=== PATIENT | male | born 1990 | race Caucasian/White ===

== ENCOUNTER 2019-02-24 20:01 | Emergency (ER) | payer SELFPAY ==
[2019-02-24 20:33] LABS: PLATELET COUNT 161 10^3/uL (150-400)
--- NOTE | 2019-02-25 00:19 | EDPHY ---
H & P Stated Complaint: SI - Personal History Current Tetanus/Diphtheria Vaccine: Yes - Medical/Surgical History Other PMH: ANXIETY, DEPRESSION, chronic pain - Social History Smoking Status: Heavy smoker Time Seen by Provider: 02/24/19 20:03 HPI/ROS: Chief complaint: Suicidal ideation, on mental health hold History of present illness: This is a 28-year-old male brought to the emergency department by EMS, accompanied by the police who have placed him on a mental health hold. Patient apparently was in an argument with his girlfriend. He texted her and called her making suicidal statements. In addition, there is concern that patient had made statements that he was going to take their child away. Girlfriend contacted the police. On my evaluation patient does state he made suicidal statements. He has a history of suicidal ideation. However he states he has no intent. Denies any homicidal ideation. He denies any illness or injury. Review of systems: A 10 point review of systems was obtained and other than described above was negative. (Emile Peters) - Physical Exam Exam: General Appearance: Alert, nontoxic. Eyes: Pupils equal and round no pallor or injection. ENT, Mouth: Mucous membranes moist. Respiratory: There are no retractions, lungs are clear to auscultation. Cardiovascular: Regular rate and rhythm. Gastrointestinal: Abdomen is soft and non tender, no masses, bowel sounds normal. Neurological: Alert. Strength and sensation intact. Skin: Warm and dry, no rashes. Musculoskeletal: Neck is supple non tender. Extremities are symmetrical, full range of motion. Psychiatric: Patient is somewhat belligerent and confrontational. (Emile Peters) Constitutional: Initial Vital Signs Temperature (C) 36.7 C 02/24/19 20:07 Heart Rate 104 H 02/24/19 20:07 Respiratory Rate 16 02/24/19 20:07 Blood Pressure 135/97 H 02/24/19 20:07 O2 Sat (%) 92 02/24/19 20:07 O2 Delivery Mode Room Air Allergies/Adverse Reactions: No Known Allergies Allergy (Unverified 02/24/19 20:24) Home Medications: Medication Instructions Recorded Ibuprofen 02/24/19 Medical Decision Making ED Course/Re-evaluation: Patient seen under the supervision of my secondary supervising physician Dr. Pillo Fitch. Patient is brought to the emergency department on a mental health hold for suicidal ideation. He is nontoxic. Vital signs are stable. He is medically evaluated, he is significantly intoxicated otherwise his evaluation is unremarkable. He will need to sober up before he can undergo psychiatric evaluation. Care of patient will be turned over to my attending physician Dr. Sienna Cervantes at end of shift. (Emile Peters) 5:40 a.m.- Patient stable throughout my shift. We are awaiting sobriety so that he can undergo mental health evaluation for suicidal statements earlier. Case will be signed out at 7:[address] oncoming provider Dr. Kothari. (Sienna Cervantes) Differential Diagnosis: Included but not limited to alcohol intoxication, polysubstance abuse, depression, bipolar, schizophrenia (Emile Peters) Other Provider: I assumed care of the patient at 0700. Update at 11:00 a.m.: The patient has been accepted for inpatient psychiatric hospitalization at [facility] by Dr. Chan. I have filled out the EMTALA transfer form. (Lincoln Kothari) - Data Points Laboratory Results: Laboratory Results 02/24/19 20:17 02/24/19 20:17 Medications Given: Discontinued Medications Ibuprofen (Motrin) 600 mg PO EDNOW ONE Stop: 02/25/19 06:36 Last Admin: 02/25/19 06:36 Dose: 600 mg Departure - Departure Disposition: [facility] IP Clinical Impression: Suicidal ideation Instructions: Suicide Prevention (ED) Referrals: NONE *PRIMARY CARE P,. [Primary Care Provider] - As per Instructions
[2019-02-25] MEDS ORDERED: IBUPROFEN 600 MG TAB PO ONE ×2 (06:31→06:35)
[2019-02-25] MEDS ORDERED: NICOTINE POLACRILEX 2 MG GUM B ONE (07:26)
[2019-02-25 07:39] VITALS: BP 123/71
[2019-02-25] MEDS ORDERED: NICOTINE POLACRILEX 2 MG GUM B PRN (08:22)
== END 2019-02-25 11:54 ==
DX: R45.851 Suicidal ideations (principal); F41.8 Other specified anxiety disorders
CPT/HCPCS: 80305; G0480

== ENCOUNTER 2019-02-25 11:55 | Inpatient (IN) | payer SELFPAY ==
[2019-02-25] MEDS ORDERED: ACETAMINOPHEN 325 MG TAB PO PRN (12:17)
[2019-02-25] MEDS ORDERED: MAGNESIUM HYDROXIDE 30 ML UDCUP PO PRN (12:17)
[2019-02-25] MEDS ORDERED: MAG HYDROX/AL HYDROX/SIMETH 30 ML UDCUP PO PRN (12:17)
[2019-02-25] MEDS ORDERED: OLANZapine DISINTEGR 10 MG TAB PO PRN (12:17)
[2019-02-25] MEDS ORDERED: THIAMINE HCL 100 MG TAB PO ONE ×2 (12:22→15:00)
[2019-02-25] MEDS ORDERED: PROMETHAZINE HCL 25 MG SUPPR PR PRN (12:22)
[2019-02-25] MEDS ORDERED: chlordiazePOXIDE 25 MG CAP PO PRN (12:22)
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
--- NOTE | 2019-02-25 15:06 | ASMTTCLDSP ---
TLC Discharge Disposition Disposition: Answers: Admit Disposition Notes: Notes: Pt has indicated that he would like to go to [place] following his hospitalization. His mother has confirmed that this is the plan. Discharge Concerns/Recommendations: Notes: In consultation with [facility] ED physician,Dr Cuenca on-call psychiatrist,Dr Chan, both concurred that Pt does appear to meet 27-65 criteria requiring psychiatric hospitalization as Pt does appear to be an imminent risk of harm to self due to a mental illness condition. Pt was read the Patient Rights and Responsibilities Statement on 02/25/2019 at 10:30am ,he signed it; original placed in chart and copy given to pt. Was patient given the Answers: Yes Inpatient Behavioral Health Prohibited Belongings List while in the ED? For inpatient Dr Chan admission, the following psychiatrist agreed to accept patient for admission to Behavioral Health ([facility]): Type of Hold: Answers: M1/72-hour Hold Hold initiated by: Answers: Police Date Signed: 02/25/2019 03:05 PM Electronically Signed By:Michaela Romo
[2019-02-25] MEDS: IBUPROFEN 200 MG TAB PO PRN (15:11)
[2019-02-25] MEDS ORDERED: BACITRACIN OINTMENT 1 PACKET TP ONE (15:11)
[2019-02-25] MEDS: PROMETHAZINE HCL 25 MG TAB PO PRN (16:12)
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
--- NOTE | 2019-02-25 17:28 | ASMTCMCOM ---
CM Note CM Note Notes: CC met with pt. to complete MTP. Pt. reports having a "long history of suicidal ideation". Pt. reports having no plan for attempting suicide. Pt. reports taking psychotropic medications when he was younger stating they were not helpful and "numbing". Pt. reports planning on "jumping on a plane after this" to [place], and will spend the summer with his parents. Pt. denies any current legal issues. Pt. reports not having any psychiatric providers or a PCP. Pt. stated his mom works in health care and is willing to help him find a provider in [place]. Pt. reports drinking alcohol five times a week, usually having 2-5 drinks per sitting. Pt. reports his drinking is "definatly" an issue. Pt. reports getting a DUI when he was 21 and participating in AA, adding he did not like AA. Pt. reports using THC to "self medicate for anxiety", reporting he uses 1/2 gram everyday. Pt. denied dabbing or using concentrates. Pt. reports THC helping, adding using too much increases his paranoia and anxiety. CC discussed abstaining or reducing pt's alcohol and THC use. Pt. denied any current use of other substances. Pt. reports using cocaine 2 years ago. Pt. presents as alert, calm, staring eye contact, somewhat guarded, and cooperative. CC to research referrals for pt. in [place]. CC to provide pt. with referral to [facility] PCP. Date Signed: 02/25/2019 05:27 PM Electronically Signed By:Yadira Villa
--- NOTE | 2019-02-25 17:33 | PDMN ---
Medical Necessity Medical necessity: Pt meets inpt criteria per MD order and [facility], Major Depressive Disorder, Adult: Inpatient Care, 3 days, 28 y/o admitted w/major depressive disorder, recurrent, moderate, generalized anxiety disorder, and Cluster B traits, on M1 due to risk of harm to self due to a mental illness condition/recent suicidal ideation.
[2019-02-25] MEDS: NICOTINE POLACRILEX 2 MG GUM B PRN (18:26)
[2019-02-26] MEDS: PROMETHAZINE HCL 25 MG TAB PO PRN ×2 (06:33→19:23)
[2019-02-26] MEDS: IBUPROFEN 200 MG TAB PO PRN (06:33)
[2019-02-26] MEDS: MULTIVITAMINS 1 EACH TAB PO SCH (08:48)
[2019-02-26] MEDS: FOLIC ACID 1 MG TAB PO SCH (08:48)
[2019-02-26] MEDS: NICOTINE POLACRILEX 2 MG GUM B PRN ×3 (08:48→17:43)
[2019-02-26] MEDS: THIAMINE HCL 100 MG TAB PO SCH (08:48)
--- NOTE | 2019-02-26 14:22 | GCON ---
[f rep st] CONSULTATION DATE OF CONSULTATION: 02/26/2019 REFERRING PHYSICIAN: Bull Ku MD REASON FOR CONSULTATION: Medical evaluation. CHIEF COMPLAINT: Suicidal ideation. A 28-year-old male with anxiety/depression diagnosed as a teenager, brought to the ER after having an argument with his girlfriend. He texted her and called her making suicidal statements. There was c oncern that he also stated he would take their child, 7-month-old daughter, away. Girlfriend called the police. He has no plan. Denies homicidal ideations. He plans to move in with his parents with the daughter and girlfriend in [place]. In the ER positiv e for THC. BAL 258. REVIEW OF SYSTEMS: I completed a 10-point review of systems, negative except as noted in HPI. PAST MEDICAL HISTORY: Anxiety, depression, alcohol use, tobacco dependence, marijuana use. PAST SURGICAL HISTORY: Tonsillectomy. SOCIAL HISTORY: Smokes a half a gram of marijuana daily. Drinks 2-5 alcoholic drinks a day. Uses a vape pen. FAMILY HISTORY: Mother with anxiety and depression. ALLERGIES: Gluten, lactose. HOME MEDICATIONS: Ibuprofen, herbal supplement. PHYSICAL EXAMINATION: VITAL SIGNS: Temperature 36.6, blood pressure 111/70, heart rate is in 60s, r espirations 16, 99% on room air. GENERAL: Thin male in no acute distress. HEENT: PERRLA. Moist m ucous membranes. CV: Regular rate and rhythm. LUNGS: Clear. ABDOMEN: Soft, nontender. : No M[place]. MUSCULOSKELETAL: 5/5 upper. NEURO: 2 through 12 intact. PSYCH: Alert and oriented x3. V cristina pleasant. LABS: Negative salicylate and Tylenol. BAL 258. Positive for THC. Sodium 142, potassium 3.7, chlo ride 103, carbon dioxide 23, creatinine 1, glucose 123. WBC 10, hemoglobin 17, hematocrit 48, platel ets 161. ASSESSMENT/PLAN: 1. Suicidal ideation: Does not have a plan in place. He will be managed further by team in [facility]. 2. Polysubstance abuse: Counseled on cessation of THC, alcohol and tobacco. No evidence of withdra wal at this time. Monitor. 3. Mild anion gap acidosis: Likely secondary to alcohol. Encourage p.o. 4. Thank you for this consultation. Will call if any questions. /[id number]/MODL
--- NOTE | 2019-02-26 15:37 | ASMTBHFAM ---
Notes Note: Notes: CC spoke with [facility], Milagro Cope [phone] MOC asked what kind of services pt. will need upon discharge, adding the closest inpatient unit is 3 hours away "when we go that route again". MO stated pt.'s issues have been building for a while. MOC stated she is currently looking into outpatient services for the pt, when he comes to [place]. MOC stated she plans to get pt. on [place] Medicaid. MOC stated pt's brothers are willing to fly to [place] to help the pt. fly to [place]. MO asked to be called with an update tomorrow about pt's discharge plans. [facility] stated pt. has no where to stay currently and asked about pt. staying an additional day or two, to allow parents to secure a plane ticket. [facility] stated pt. will be living with his parents over the summer and hopefully move into his own place by the end of the summer. Date Signed: 02/26/2019 03:35 PM Electronically Signed By:Yadira Villa
[2019-02-26] MEDS: ESCITALOPRAM OXALATE 10 MG TAB PO SCH (16:11)
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
[2019-02-27] MEDS: NICOTINE POLACRILEX 2 MG GUM B PRN (06:32)
[2019-02-27 07:03] VITALS: BP 120/82
[2019-02-27] MEDS: PROMETHAZINE HCL 25 MG TAB PO PRN (08:40)
[2019-02-27] MEDS: ESCITALOPRAM OXALATE 10 MG TAB PO SCH (08:41)
[2019-02-27] MEDS: MULTIVITAMINS 1 EACH TAB PO SCH (08:42)
[2019-02-27] MEDS: FOLIC ACID 1 MG TAB PO SCH (08:42)
[2019-02-27] MEDS: THIAMINE HCL 100 MG TAB PO SCH (08:42)
--- NOTE | 2019-02-27 11:21 | ASMTCMCOM ---
CM Note CM Note Notes: Ct. was seen at team rounds today. Ct. reported that he struggles with SI. Ct. reported that he feels a lot better since his admission. He denied current SI and reported that he is doing better. Ct. is discharging today. Ct. plans to fly to [place] to be with his parents. Ct. plans to meet with his baby daughter before leaving town and catch a flight back to [place] afterward. Date Signed: 02/27/2019 11:19 AM Electronically Signed By:Justine Amezquita
--- NOTE | 2019-02-27 14:27 | BDS ---
[f rep st] BEHAVIORAL HEALTH DISCHARGE SUMMARY REASON FOR ADMISSION: The patient was brought to the ED by EMS accompanied by police who placed him on an M1 hold for being a danger to himself. The patient' s girlfriend reported that the patient was suicidal in possession of their child. The patient made comments of diving off roof of apartment complex. The patient had sent text messages to his girlfriend making suicidal statements. The patient was admitted involuntarily and on an M1 hold due to being a danger to himself. The patient was admitted for safety, crisis stabilization, and medication management. ADMITTING DIAGNOSES: 1. Adjustment disorder, mixed disturbance of conduct and mood. 2. Substance induced mood disorder. 3. 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 4. Alcohol use disorder, severe. 5. Cannabis use disorder, severe. 6. Rule out intermittent explosive disorder. ADMISSION PHYSICAL EXAM: Patient was seen on 02/26/2019 for history and physical consultation for medical clearance for inpatient psychiatric hospitalization and treatment. The patient was medically cleared for inpatient psychiatric hospitalization and treatment. For further details, please refer to consultation document dated 02/26/2019. ADMISSION LABS: 1. CBC within normal limits except white blood cells were elevated at 10.27, absolute lymphocytes were elevated at 3.46. 2. Chemistry. BMP within normal limits except anion gap was elevated at 16. Glucose was elevated at 123. 3. Toxicology screen nonnegative for THC. Admission at the emergency room, ethyl alcohol level was 258. MAJOR PROCEDURES OR TESTS: None. HOSPITAL COURSE: The most prominent symptoms and behaviors while the patient was here were reports of moderate anxiety and depression. Treatment modalities utilized were milieu and group therapy. Lexapro 5 mg p.o. daily was started to target mood symptoms, was tolerated with no report of side effects. Patient has improved considerably with no signs of psychiatric symptoms and no psychiatric symptoms expressed. Patient reports he has improved since admission , states to be in stable condition, feels safe to discharge, and he contracts for safety. Patients response to treatment was good. There were no adverse or unexpected results of treatment. The patient was safe throughout stay, active in treatment, engaged in groups, and was appropriate with staff. Patient met with treatment team prior to discharge to assess readiness to discharge and review discharge plan. The treatment team consensus is the patient in stable condition, has a safe discharge plan, and is ready to discharge today. CONDITION AT DISCHARGE: Patient is in stable condition and is no longer a danger to self or others, and is not gravely disabled due to mental illness. Patient is no longer in need of inpatient level of care, and can be safely and effectively treated within the community. The patients level of risk at time of discharge is low. MSE: The patient is casually dressed and with good hygiene , and looks stated age. Patient is sitting, posture is upright, and position is relaxed. Patient appears awake, alert, and responds appropriately and reasonably during interview. Patient is engaged, relates well to interviewer, and emotional facial expression is appropriate to situation and changes appropriately with topic. Patient is cooperative, makes comfortable eye contact , and movements are voluntary, deliberate, coordinated, and smooth and even with no inappropriate movements. Patient makes laryngeal sounds effortlessly and shares conversation appropriately; pace of conversation is appropriate, and stream of talking is fluent; articulation is clear and understandable; word choice is effortless and appropriate for education level; completes sentences, occasionally pausing to think; rate and volume are appropriate for interview and setting. Patient reports mood as euthymic. Patients affect is stable with full variable range, congruent with mood, and appropriate to speech and circumstances. Patient has linear and logical thinking, with no loose associations, tangential thought, thought blocking, concrete thinking, or any other signs of formal thought disorder. Patient denies suicidal and homicidal ideation, and denies hallucinations and delusions. Patient appears to be a reliable historian with sound judgement and good insight into current condition. Patient has no apparent dysfunction in recent or remote memory noted , and no evidence of gross cognitive dysfunction noted at any point during the interview. DISCHARGE DIAGNOSES: 1. Adjustment disorder, mixed disturbance of conduct and mood. 2. Substance induced mood disorder. 3. Alcohol use disorder, severe. 4. Cannabis use disorder, severe. 5. Major Depressive Disorder, severe with anxious distress. CURRENT MEDICATIONS: After reviewing options, risks and benefits with the patient, patient agrees to continue Lexapro 5 mg p.o. daily. Patient requests a prescription for this medication at time of discharge. Prescription for 30 days is provided. Prescription is reviewed with the patient at time of discharge to ensure accuracy and patient understanding. DISPOSITION: Patient left hospital independently and voluntarily with plans to travel to [place] and live with his parents. Patient plans to stay at a hotel immediately following discharge until he is travels to [place]. Patient reports he plans to fly to [place]. FOLLOWUP: coordinator of genetic services reports the appropriate outpatient follow-up services have been established and outpatient appointments have been scheduled. The patient received written instructions with times and dates of outpatient follow-up appointments. The following follow-up recommendations were provided to the patient at discharge: Continue psychotropic medications as prescribed and attend appointments as scheduled. Report any side effects to a psychiatric outpatient provider, a primary care provider, or other health care analyst. Address any questions or problems concerning the psychotropic medications with a psychiatric outpatient provider, a primary care provider, or other health care analyst. Contact [facility] or [facility], or go to the nearest emergency room, if you are ever a danger to yourself/others, or unable to care for yourself. As soon as possible, establish a routine medication management treatment with a psychiatric provider, establish routine therapy appointments, and follow-up with a primary care provider. LEGAL COURSE: Patient was admitted on an M1 hold for involuntary inpatient psychiatric hospitalization. Patient discharged today independently and voluntarily. ATTITUDE AT TIME OF DISCHARGE: The patients attitude was positive at time of discharge, and patient reports looking forward to discharging today. The patient reports he feels safe to discharge, is no longer a danger to himself or others, is in stable condition, and contracts for safety. Patient states he will continue medications as prescribed, and establish medication management treatment with an outpatient provider after discharge. Patient reports he understands the information that has been provided to him, and he understands, accepts, and agrees to psychotropic medications. Patient describes internal protective factors as the coping skills he has learned while hospitalized here, and he plans to continue to practice these coping skills after discharge. LABS AND RADIOLOGY STUDIES: There were no pending labs or studies at time of discharge. ADVANCE DIRECTIVES: There were no advance directives on file, and patient was full code during this hospitalization. The following psychotropic medication treatment informed consent and recommendations were provided to the patient at time of discharge. Patient reports he understands, accepts, and agrees to the information that has been provided. PSYCHOTROPIC MEDICATION TREATMENT INFORMED CONSENT and RECOMMENDATIONS: Review nature of condition, diagnosis, and prognosis. Review nature and purpose of psychotropic medication treatment. Review type of psychotropic medications being prescribed. Review risk and benefits of psychotropic medication treatment. Review probable length of time will need to take medications. Review risk and benefits of not undergoing psychotropic medication treatment. Review alternative treatments to psychotropic medications. Review psychotropic medications contraindications, side effects, and importance of reporting any side effects to a psychiatric provider, primary care provider, or other health care analyst. Review importance of asking a psychiatric provider or primary care provider any questions or problems concerning the psychotropic medications. Review safety plan and the importance to contact [facility] or [facility] , or go to the nearest emergency room, if ever a danger to yourself/others, or unable to care for yourself. Recommend upon discharge to establish routine medication management treatment with a psychiatric provider, establish routine therapy appointments, and follow-up with a primary care provider. Verify patient understands, accepts, and agrees to the information that has been provided. /[id number]/MODL MTDD
== END 2019-02-27 11:40 | disposition home or self-care (01) | DRG 882 ==
LOC: BBEH 11:55
PROVIDERS: ADMIT Psychiatry & Neurology Psychiatry; ATTEND Psychiatry & Neurology Psychiatry
DX: F43.25 Adjustment disorder with mixed disturbance of emotions and conduct (principal); F33.3 Major depressive disorder, recurrent, severe with psychotic symptoms; F12.959 Cannabis use, unspecified with psychotic disorder, unspecified; Z72.89 Other problems related to lifestyle